=== PATIENT | female | born 1980 | race African-American/Black ===

== ENCOUNTER 2021-09-14 12:30 | Emergency (ER) | payer BC ==
[2021-09-14] MEDS ORDERED: Ketorolac Tromethamine 30 MG/ML VIAL ONE (14:28)
== END 2021-09-14 14:36 | disposition home or self-care (01) ==
LOC: ERS 12:30
DX: S60.211A Contusion of right wrist, initial encounter (principal); W22.8XXA Striking against or struck by other objects, initial encounter
CPT/HCPCS: 96372; J1885